=== PATIENT | male | born 1965 | race Caucasian/White ===

== ENCOUNTER 2020-03-11 11:35 | Emergency (ER) | payer BC ==
--- NOTE | 2020-03-11 11:59 | EDM.PDOC ---
ED HPI GENERAL MEDICAL PROBLEM - General Chief Complaint: Lower Extremity Injury/Pain Stated Complaint: RT CALF BLACK AND BLUE Time Seen by Provider: 03/11/20 12:00 - History of Present Illness INITIAL COMMENTS - FREE TEXT/NARRATIVE: History of present illness: Patient presents with right leg pain and ecchymosis and swelling over the posterior needle aspect of the calf he denies any trauma he did have some skin lesions frozen off the other day but this is in a the opposite side of the leg he denies any compression immobilization or trauma to that he has had no chest pain or shortness of breath never had anything like this before the leg is black and blue and there is some tenderness to the calf. He denies being on blood thinners has a history of hypertension Review of systems: As per history of present illness and below otherwise all systems reviewed and negative. Past medical history: As per history of present illness and as reviewed below otherwise noncontributory. Surgical history: As per history of present illness and as reviewed below otherwise noncontributory. Social history: No reported history of drug or alcohol abuse. Family history: As per history of present illness and as reviewed below otherwise noncontributory. Physical exam: HEENT: Atraumatic, normocephalic, pupils reactive, negative for conjunctival pallor or scleral icterus, mucous membranes moist, throat clear, neck supple, nontender, trachea midline. Lungs: Clear to auscultation, breath sounds equal bilaterally, chest nontender. Heart: S1S2, regular, negative for clicks, rubs, or JVD. Abdomen: Soft, nondistended, nontender. Negative for masses or hepatosplenomegaly. Negative for costovertebral tenderness. Pelvis: Stable nontender. Genitourinary: Deferred. Rectal: Deferred. Extremities: Atraumatic, negative for cords or calf pain. Neurovascular unremarkable. The right calf is swollen ecchymotic and tender. Negative Homans sign Neuro: Awake, alert, oriented. Cranial nerves II through XII unremarkable. Cerebellum unremarkable. Motor and sensory unremarkable throughout. Exam nonfocal. Diagnostics: [] Therapeutics: [] Impression: [] Plan: Ultrasound Doppler right leg reassess [] Definitive disposition and diagnosis as appropriate pending reevaluation and review of above. Right calf Pain Score (Numeric/FACES): 0 - Related Data Allergies Allergy/AdvReac Type Severity Reaction Status Date / Time No Known Allergies Allergy Verified 03/11/20 11:58 Review of Systems - Review of Systems Review Of Systems: See Below ED EXAM, GENERAL - Physical Exam Exam: See Below Course - Vital Signs Text/Narrative:: Doppler ultrasound lower extremity read by radiology is negative for acute DVT. Patient has a hematoma there he is to ice elevate and rest the limb follow-up with primary care. Last Recorded V/S: Last Vital Signs Temp 36.8 C 03/11/20 11:52 Pulse 93 03/11/20 11:52 Resp 18 03/11/20 11:52 BP 144/88 H 03/11/20 11:52 Pulse Ox 95 03/11/20 11:52 Departure - Departure Time of Disposition: 14:02 Disposition: Home, Self-Care 01 Condition: Good Clinical Impression: Hematoma - Discharge Information *PRESCRIPTION DRUG MONITORING PROGRAM REVIEWED*: Not Applicable *COPY OF PRESCRIPTION DRUG MONITORING REPORT IN PATIENT SHANTE: Not Applicable Referrals: Zenon Pinto MD [Primary Care Provider] - Forms: ED Department Discharge Additional Instructions: The following information is given to patients seen in the emergency department who are being discharged to home. This information is to outline your options for follow-up care. We provide all patients seen in our emergency department with a follow-up referral. The need for follow-up, as well as the timing and circumstances, are variable depending upon the specifics of your emergency department visit. If you don't have a primary care physician on staff, we will provide you with a referral. We always advise you to contact your personal physician following an emergency department visit to inform them of the circumstance of the visit and for follow-up with them and/or the need for any referrals to a consulting specialist. The emergency department will also refer you to a specialist when appropriate. This referral assures that you have the opportunity for follow-up care with a specialist. All of these measure are taken in an effort to provide you with optimal care, which includes your follow-up. Under all circumstances we always encourage you to contact your private physician who remains a resource for coordinating your care. When calling for follow-up care, please make the office aware that this follow-up is from your recent emergency room visit. If for any reason you are refused follow-up, please contact the Emergency Department at and asked to speak to the emergency department charge nurse. Sepsis Event Note (ED) - Focused Exam Vital Signs: Vital Signs Temp Pulse Resp BP Pulse Ox 03/11/20 11:52 36.8 C 93 18 144/88 H 95
--- NOTE | 2020-03-11 13:35 | US ---
INDICATION: Pain right medial calf. COMPARISON: None. TECHNIQUE: A compression venous ultrasound exam was performed of the right lower extremity using noble-scale imaging, color Doppler and spectral Doppler analysis. FINDINGS: Sonographic imaging of the right lower extremity demonstrates normal compressibility and color Doppler venous blood flow within the common femoral vein and the proximal greater saphenous vein. Within the thigh, the femoral vein is patent and compressible. At a lower level, the popliteal and posterior tibial veins also show normal compressibility and color Doppler venous blood flow. IMPRESSION: Negative for acute DVT in the right lower extremity. Of note, images of the deep femoral vein, peroneal vein, and greater saphenous vein were not provided. Dictated by Olga Lidia Subramanian MD @ Mar 11 2020 1:28PM Signed by Dr. Olga Lidia Subramanian @ Mar 11 2020 1:34PM
== END 2020-03-11 14:19 | disposition home or self-care (01) ==
LOC: MW.ED 11:35
DX: M79.81 Nontraumatic hematoma of soft tissue (principal)
CPT/HCPCS: 93971-26-RT; 93971-RT; 99282; 99283-25

== ENCOUNTER 2023-05-06 17:03 | Emergency (ER) | payer OTHER, BC ==
[2023-05-06] MEDS ORDERED: Diphtheria,Pertussis(Acell),Tetanus Vaccine 0.5 ML Syringe IM ONE (17:10)
[2023-05-06 17:15] LABS: BASOPHILS ABSOLUTE AUTO 0.1 K/uL (0.0-0.1); BASOPHILS PERCENT AUTO 0.7 % (0.0-1.5); EOSINOPHILS ABSOLUTE AUTO 0.3 K/uL (0.0-0.7); EOSINOPHILS PERCENT AUTO 3.3 % (0.0-7.0); HEMOGLOBIN 11.2 g/dL (13.0-17.0); LYMPHOCYTES ABSOLUTE AUTO 3.4 K/uL (0.6-2.4); LYMPHOCYTES PERCENT AUTO 45.4 % (16.0-40.0); MEAN CORPUSCULAR VOLUME 84.3 fL (80.0-98.0); MONOCYTES ABSOLUTE AUTO 0.6 K/uL (0.0-0.8); MONOCYTES PERCENT AUTO 7.5 % (0.0-15.0); NEUTROPHILS ABSOLUTE AUTO 3.2 K/uL (1.4-5.7); NEUTROPHILS PERCENT AUTO 43.1 % (48.0-80.0); NRBC ABSOLUTE 0 K/uL; PLATELET COUNT,PLT 178 K/uL (150-400); RED BLOOD CELL COUNT 4.15 M/uL (4.50-5.90); WHITE BLOOD CELL COUNT,WBC 7.49 K/uL (4.0-11.0)
[2023-05-06] MEDS ORDERED: fentaNYL 50 MCG/ML SDV IVPUSH ONE (17:22)
[2023-05-06] MEDS ORDERED: Naloxone 0.4 MG/ML SDV IVPUSH PRN (17:22)
[2023-05-06] MEDS ORDERED: Ketamine 500 mg/10 ML MDV IV STA (17:26)
[2023-05-06] MEDS ORDERED: Ketamine 500 mg/10 ML MDV ONE (17:27)
[2023-05-06] MEDS ORDERED: ceFAZolin 2 GM in Sodium Chloride 0.9% 50 ML IV ONE (17:34)
[2023-05-06 17:40] LABS: ALANINE AMINOTRANSFERASE,ALT 180 IU/L (14-63); ALBUMIN 3.3 g/dL (3.4-5.0); ALKALINE PHOSPHATASE 67 U/L (46-116); ASPARTATE AMNIOTRANSFERASE,AST 171 IU/L (15-37); BILIRUBIN TOTAL 0.4 mg/dL (0.2-1.0); BLOOD UREA NITROGEN,BUN 10 mg/dL (7.0-18.0); CALCIUM 8.6 mg/dL (8.5-10.1); CARBON DIOXIDE,CO2 20.1 mmol/L (21.0-32.0); CHLORIDE,CL 102 mmol/L (98-107); GLUCOSE RANDOM 172 mg/dL (74-106); LIPASE 77 U/L (16-77); POTASSIUM,K 3.3 mmol/L (3.5-5.1); PROTEIN TOTAL,TP 6.7 g/dL (6.4-8.2); SODIUM,NA 138 mmol/L (136-148)
[2023-05-06 17:41] LABS: ESTIMATED GFR 88 mL/min (>60)
[2023-05-06 17:46] LABS: INR 1.09 (0.86-1.11)
[2023-05-06] MEDS ORDERED: Midazolam 1 MG/ML 2 ML SDV ONE (18:07)
[2023-05-06] MEDS ORDERED: Midazolam 1 MG/ML 2 ML SDV IVPUSH ONE (18:09)
[2023-05-06 19:10] LABS: APPEARANCE,URINE CLEAR; BILIRUBIN,URINE NEGATIVE (NEGATIVE); COLOR,URINE YELLOW; GLUCOSE,URINE NEGATIVE (NEGATIVE); KETONES,URINE NEGATIVE (NEGATIVE); LEUKOCYTE ESTERASE,URINE NEGATIVE (NEGATIVE); NITRITE,URINE NEGATIVE (NEGATIVE); OCCULT BLOOD,URINE SMALL (NEGATIVE); PROTEIN,URINE NEGATIVE (NEGATIVE)
[2023-05-06 19:16] LABS: AMPHETAMINES SCREEN, URINE NEGATIVE (CUTOFF=500); BARBITURATE SCREEN,URINE NEGATIVE (CUTOFF=200); BENZODIAZEPINES SCREEN,URINE NEGATIVE (CUTOFF=150); BUPRENORPHINE SCREEN,URINE NEGATIVE (CUTOFF=10); METHADONE SCREEN, URINE NEGATIVE (CUTOFF=200); METHAMPHETAMINES SCREEN, URINE NEGATIVE (CUTOFF=500); OXYCODONE SCREEN,URINE NEGATIVE (CUT0FF=100); PCP SCREEN,URINE NEGATIVE (CUTOFF=25); PROPOXYPHENE SCREEN,URINE NEGATIVE (CUTOFF=300); THC SCREEN,URINE 20 NG/ML PRESUMPTIVE POSITIVE (CUTOFF=50)
[2023-05-06 19:22] LABS: BACTERIA,URINE NOT SEEN (NEGATIVE); RBC,URINE 0-5 (0-2/HPF); WBC,URINE NONE SEEN (0-5/HPF)
[2023-05-06 19:23] LABS: EPITHELIAL CELLS,URINE NOT SEEN (NONE-FEW)
== END 2023-05-06 19:24 ==
LOC: MW.ED 17:03
DX: S82.832B Other fracture of upper and lower end of left fibula, initial encounter for open fracture type I or II (principal); S82.302B Unspecified fracture of lower end of left tibia, initial encounter for open fracture type I or II; S01.01XA Laceration without foreign body of scalp, initial encounter; I10 Essential (primary) hypertension; Z23 Encounter for immunization; Z79.899 Other long term (current) drug therapy; V23.49XA Other motorcycle driver injured in collision with car, pick-up truck or van in traffic accident, initial encounter; Y92.410 Unspecified street and highway as the place of occurrence of the external cause
CPT/HCPCS: 12004; 27752; 36415; 51702; 70450; 71045; 71260; 72125; 72170; 73590; 74177; 80053; 80305; 80307; 81001; 83690; 85025; 85610; 86850; 86900; 86901; 86920; 90471; 90715; 96365; 96375; 99285; J0690; J2250; J3010; J3490

== ENCOUNTER 2023-05-12 15:22 | Emergency (ER) | payer BC, OTHER ==
[2023-05-12] MEDS ORDERED: Sodium Chloride 0.9% 2.5 ML Syringe FLUSH PRN (16:23)
[2023-05-12] MEDS ORDERED: Sodium Chloride 0.9% 10 ML Syringe FLUSH PRN (16:23)
[2023-05-12] MEDS ORDERED: Meropenem 2 GM in Sodium Chloride 0.9% 100 ML IV ONE ×4 (16:30)
[2023-05-12] MEDS ORDERED: VANCOmycin 1.75 GM/350 ML 1.75 GM in Premix Bag 1 BAG IV ONE (16:45)
[2023-05-12 17:15] LABS: BASOPHILS ABSOLUTE AUTO 0.1 K/uL (0.0-0.1); BASOPHILS PERCENT AUTO 0.9 % (0.0-1.5); EOSINOPHILS ABSOLUTE AUTO 0.1 K/uL (0.0-0.7); EOSINOPHILS PERCENT AUTO 1.8 % (0.0-7.0); HEMATOCRIT 31.4 % (38.0-50.0); HEMOGLOBIN 10.1 g/dL (13.0-17.0); LYMPHOCYTES ABSOLUTE AUTO 1.8 K/uL (0.6-2.4); LYMPHOCYTES PERCENT AUTO 27.9 % (16.0-40.0); MEAN CORPUSCULAR HEMOGLOBIN 27.4 pg (27.0-32.0); MEAN CORPUSCULAR HGB CONC 32.2 g/dL (31.0-37.0); MEAN CORPUSCULAR VOLUME 85.1 fL (80.0-98.0); MONOCYTES ABSOLUTE AUTO 0.8 K/uL (0.0-0.8); MONOCYTES PERCENT AUTO 12.1 % (0.0-15.0); NEUTROPHILS ABSOLUTE AUTO 3.7 K/uL (1.4-5.7); NEUTROPHILS PERCENT AUTO 57.3 % (48.0-80.0); NRBC ABSOLUTE 0 K/uL; PLATELET COUNT,PLT 291 K/uL (150-400); RED BLOOD CELL COUNT 3.69 M/uL (4.50-5.90); WHITE BLOOD CELL COUNT,WBC 6.52 K/uL (4.0-11.0)
[2023-05-12 17:45] LABS: A/G RATIO 0.7 (0.9-1.6); ALBUMIN 3.2 g/dL (3.4-5.0); BILIRUBIN TOTAL 0.9 mg/dL (0.2-1.0); C-REACTIVE PROTEIN 4.2 mg/dL (0.00-0.90); CALCIUM 8.9 mg/dL (8.5-10.1); CARBON DIOXIDE,CO2 24.8 mmol/L (21.0-32.0); CREATININE 0.9 mg/dL (0.8-1.3); EST CRCL DRUG DOSING (CG) 94.63 mL/min; LACTIC ACID 1.4 mmol/L (0.4-2.0); MAGNESIUM 2.3 mg/dL (1.8-2.4); POTASSIUM,K 3.8 mmol/L (3.5-5.1); PROTEIN TOTAL,TP 8.1 g/dL (6.4-8.2)
[2023-05-12 17:56] LABS: INR 1.01 (0.86-1.11)
== END 2023-05-12 19:31 ==
LOC: MW.ED 15:22
DX: T81.49XA Infection following a procedure, other surgical site, initial encounter (principal); L02.811 Cutaneous abscess of head [any part, except face]; I10 Essential (primary) hypertension
CPT/HCPCS: 36415; 70470; 80053; 83605; 83735; 84145; 85025; 85610; 86140; 87040; 87070; 87205; 96365; 96367; 99285; J2185; J3370; J3490; 87077; 87186

== ENCOUNTER 2023-07-23 16:44 | Emergency (ER) | payer BC | END 2023-07-23 19:02 | disposition home or self-care (01) | LOC: MW.ED 16:44 | DX: M25.562 Pain in left knee (principal); I10 Essential (primary) hypertension; Z79.899 Other long term (current) drug therapy | CPT/HCPCS: 73562-26-LT; 73562-LT; 73590-26-LT; 73590-LT; 99283 ==

== ENCOUNTER 2025-05-20 06:42 | Day surgery (SDC) | payer BC ==
[2025-05-20] MEDS: Lactated Ringers 1,000 ML IV SCH (07:17)
[2025-05-20] MEDS ORDERED: propofoL 500 MG/50 ML 50 ML ONE (07:53)
[2025-05-20] MEDS ORDERED: Lactated Ringers 1,000 ML IV SCH (08:30)
== END 2025-05-20 09:00 | disposition home or self-care (01) ==
LOC: MW.SDS 06:42
PROVIDERS: ATTEND Surgery
DX: Z12.11 Encounter for screening for malignant neoplasm of colon (principal); K57.30 Diverticulosis of large intestine without perforation or abscess without bleeding; I10 Essential (primary) hypertension; E11.9 Type 2 diabetes mellitus without complications; E78.00 Pure hypercholesterolemia, unspecified; Z79.899 Other long term (current) drug therapy
CPT/HCPCS: 45378; J2704; J7120; 00811